=== PATIENT | female | born 1940 | race Caucasian/White ===

== ENCOUNTER 2021-01-24 08:01 | Observation (INO) | payer OTHER ==
[~2021-01-24] VITALS: Ht 170.2 cm; Wt 87.1 kg
[~2021-01-24 08:01] MED LIST: ADULT LOW DOSE81 MG; ASPIRIN EC325 M1 PO; ASPIRIN81 M2 PO; CHOLESTYRAMINE; CIPROFLOXACIN500 M1 PO; ESTRADIOL; GLUCOSAMINE1000 MG PO; PREMARIN0.3 MG; PROPRANOLOL PO; PYRIDIUM200 MG PO; QUESTRAN; QUETIAPINE; RANITIDINE PO; SEROQUEL 25 MG25 M1; TYLENOL; [UNRECOGNIZED DRUG - REMARK]
[2021-01-24 08:03] VITALS: BP 149/55
[2021-01-24] MEDS ORDERED: TYLENOL325 MG PO (08:13)
[2021-01-24] MEDS ORDERED: ELIQUIS5 MG PO (08:13)
[2021-01-24] MEDS ORDERED: FLONASE 0.05%50 MCG NARES (08:14)
[2021-01-24] MEDS ORDERED: CHOLESTYRAMINE L4 GM PO (08:14)
[2021-01-24] MEDS ORDERED: SKELAXIN 800 M800 MG PO (08:15)
[2021-01-24] MEDS ORDERED: MYSOLINE50 MG PO (08:15)
[2021-01-24] MEDS ORDERED: INDERAL60 MG PO (08:16)
[2021-01-24] MEDS ORDERED: TRAMADOL 50 MG50 MG PO (08:17)
[2021-01-24] MEDS ORDERED: DERMACINRX FOL (08:17)
[2021-01-24 08:31] LABS: ABSOLUTE BASOPHILS 0.1 thou/uL (0.0-0.2); ABSOLUTE EOSINOPHILS 0.1 thou/uL (0.0-0.7); ABSOLUTE LYMPHOCYTES 1.5 thou/uL (0.8-5.3); ABSOLUTE MONOCYTES 0.7 thou/uL (0.0-1.2); ABSOLUTE NEUTROPHILS 4.3 thou/uL (1.6-8.1); BASOPHILS 1.2 %; EOSINOPHILS 2.1 %; HEMATOCRIT 32.6 % (37.0-47.0); HEMOGLOBIN 11.5 gm/dL (12.0-15.0); LYMPHOCYTES 22.3 %; MCH 30.6 pg (26.0-34.0); MCHC 35.3 g/dL (28.0-37.0); MCV 86.7 fL (80.0-100.0); MONOCYTES 10.7 %; MPV 7.1 fl. (7.2-11.1); NUCLEATED RBCS 0 /100WBC; PLATELET COUNT* 409 thou/uL (150-400); POLYS 63.7 %; RBC 3.76 mil/uL (4.20-5.00); RDW-CV 14.3 % (10.5-14.5); WBC 6.8 thou/uL (4.0-11.0)
[2021-01-24 08:38] LABS: ANION GAP 7 mmol/L (7-16); BUN 12 mg/dL (7-18); CALCIUM 9.8 mg/dL (8.5-10.1); CHLORIDE 101 mmol/L (98-107); CO2 27 mmol/L (21-32); CREATININE 0.7 mg/dL (0.6-1.3); GLUCOSE 140 mg/dL (70-99); POTASSIUM 4.1 mmol/L (3.5-5.1); SODIUM 135 mmol/L (136-145)
[2021-01-24 08:47] LABS: ALBUMIN 3.5 g/dL (3.4-5.0); ALKALINE PHOSPHATASE 141 U/L (46-116); NT-PRO BRAIN NAT PEPTIDE 95 pg/mL (<300); SGOT 21 U/L (15-37); SGPT 25 U/L (30-65); TOTAL BILIRUBIN 0.6 mg/dL (<0.1-1.0); TOTAL PROTEIN 7.1 g/dL (6.4-8.2)
[2021-01-24 09:39] LABS: URINE BILIRUBIN NEGATIVE (Negative); URINE BLOOD NEGATIVE (Negative); URINE CLARITY CLEAR; URINE COLOR YELLOW; URINE GLUCOSE-RANDOM NEGATIVE (Negative); URINE KETONES NEGATIVE (Negative); URINE LEUKOCYTES-REFLEX NEGATIVE (Negative); URINE NITRITE-REFLEX NEGATIVE (Negative); URINE PROTEIN NEGATIVE (Negative); URINE SPECIFIC GRAVITY >= 1.030 (1.005-1.030); URINE UROBILINOGEN 0.2 E.U./dl (0.2-1.0)
[2021-01-24 13:00] VITALS: BP 128/45
[2021-01-24 16:00] VITALS: BP 132/43
--- NOTE | 2021-01-24 16:30 | EKG ---
[place] [address] ELECTROCARDIOGRAM REPORT Name: JUVENCIO INTERIANO Room: [address] M.R.#: [id number] Admission: 01/24/21 Attend Phys: Shaquille King Discharge: Date of : 40 Date of Service: 01/24/21 0827 Report #: [id number] THIS REPORT FOR: //name// [facility] ED Test Date: 2021-01-24 Test Time: 08:27:23 Pat Name: JUVENCIO INTERIANO Department: Room: [facility] Gender: F Lacing Presser: THUY : 1940 Requested By: Bipin Barlow Order Number: [id number] MD: Clemente Monroe Measurements Intervals [place] Rate: 59 P: -82 SC: 217 QRS: -36 QRSD: 108 T: 22 QT: 409 QTc: 406 Interpretive Statements Sinus rhythm Borderline prolonged SC interval Left axis deviation Possible inferior scar Compared to ECG 03/22/2011 14:38:16 Left-axis deviation now present Left anterior fascicular block persists Myocardial infarct finding still suggested Electronically Signed On 01-24-2021 16:30:39 CDT by Clemente Monroe [email or web address] <ELECTRONICALLY SIGNED> By: Clemente Monroe MD, [facility] 01/24/21 1630 6 6 Clemente Monroe MD, [facility] /EPI
--- NOTE | 2021-01-24 17:39 | NUR ---
PATIENT ARRIVED TO UNIT FROM ER AT APPROX. 1413. PATIENT STATES THAT SHE HAD RIGHT KNEE SURGERY ON JANUARY [address] GARCIA AT [facility]. THEN WENT TO [facility] [place], [facility] BY [facility] FOR APPROX. 2 WEEKS THEN CAME HOME THIS PAST FRIDAY. STATES SHE SAW DR. GARCIA YESTERDAY AND IS HAVING PAIN IN HER RIGHT KNEE HOWEVER DOES NOT WANT ANYTHING FOR PAIN AT THIS TIME. DR. GIPSON SAW PATIENT AT BEDSIDE DURING THIS NURSE'S ASSESSMENT. PER VERBAL ORDER, ADDED HEART HEALTHY DIET FOR PATIENT. THIS NURSE PROVIDED PATIENT WITH SANDWICH BOX. PATIENT CALLED OUT AFTER TAKING "A FEW BITES OF THE SANDWICH" AND STATES THAT SHE IS "ALLERGIC TO [place]". SOON AFTER, PATIENT'S SISTER, URIEL, NOTIFIED THIS NURSE THAT PATIENT SPOKE NASTY TO HER AND "KICKED HER OUT" OF HER ROOM. URIEL ALSO STATES THAT PATIENT HAD TOLD HER THAT "NONE OF THESE NURSES ARE HELPING HER DO ANYTHING" (WHICH SHE HAD NOT CALLED OUT FOR HELP AT THAT POINT) AND THAT THE "NURSE KNEW I WAS ALLERGIC TO [place] AND SHE GAVE IT TO ME ON PURPOSE". THIS NURSE ASSURED SISTER THAT PATIENT HAD NOT MENTIONED HER "ALLERGY TO [place]" NOR WAS IT LISTED ON HER ALLERGIES OTHERWISE THIS NURSE WOULD CERTAINLY NOT HAVE GIVEN IT TO HER. URIEL THEN PROCEEDS TO TELL THIS NURSE THAT PATIENT "DOES THIS STUFF ALL THE TIME". SISTER ALSO STATES THAT PATIENT HAS "HAD APPROX. 4 STAYS IN A MENTAL HOSPITAL." THIS NURSE HAS SINCE ASSISTED PATIENT TO [facility] AND APOLOGIZED TO PATIENT ABOUT PROVIDING HER WITH A [place] SANDWICH, ALSO THAT THIS NURSE WOULD ADD [place] TO HER LIST OF ALLERGIES. PATIENT EXPRESSED HER APPRECIATION TO THIS NURSE, STATING, "YOU HAVE BEEN SO NICE TO ME, THANK YOU". CALL LIGHT AND FREQUENTLY USED ITEMS WITHIN REACH.
[2021-01-24 20:00] VITALS: BP 134/43
[2021-01-24 23:50] VITALS: BP 150/55
--- NOTE | 2021-01-25 03:15 | NUR ---
PT ALERT ORINTED. INITAL ASSESSMENT PT STATED SHE NEEDED CHOLESTYRAMINE. LOOKING ON EMAR IT SHOWED PT REFUSED IT AT 1459. PT ADAMANTLY DENIED REFUSING. WHEN OFFERED TO GIVE IT SHE REFUSED. 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 UP WITH STAND BY ASSIST TO THE BSC. TRAMADOL AND MELATONIN GIVEN HS.
[2021-01-25 03:59] LABS: HEMOGLOBIN 11.1 gm/dL (12.0-15.0); MCH 30.3 pg (26.0-34.0); MCHC 34.6 g/dL (28.0-37.0); MCV 87.5 fL (80.0-100.0); MPV 7.5 fl. (7.2-11.1); RBC 3.66 mil/uL (4.20-5.00); RDW-CV 13.9 % (10.5-14.5)
[2021-01-25 04:00] VITALS: BP 145/67
[2021-01-25 04:01] LABS: CALCIUM 9.8 mg/dL (8.5-10.1); CREATININE 0.7 mg/dL (0.6-1.3); POTASSIUM 3.9 mmol/L (3.5-5.1)
[2021-01-25 08:00] VITALS: BP 141/67
[2021-01-25 10:23] VITALS: BP 145/67
--- NOTE | 2021-01-25 10:27 | NUR ---
CM ASSESSMENT: PT A&O, BUT FORGETFUL. CM SPOKE TO THE PT AND HER SISTER TO DISCUSS CM ASSESSMENT. PT RESIDES AT HOME ALONE. PT STILL ABLE TO DRIVE. PT USES A WALKER FOR MOBILITY, BUT ALSO OWNS A CANE. PT RECENTLY D/C'D (01/22/21) FROM SNF AT [facility] AFTER KNEE SX. PT CURRENT WITH [facility] , AND PLANS TO RESUME HH WITH [facility] AT D/C. CM TO FAX PT'S D/C HH ORDERS WHEN AVAILABLE. PT'S SISTER INFORMS OF ABILITY TO PRIOVIDE PT TRANSPORTATION HOME AT D/C, AND RN HAS BEEN INFORMED OF THIS. CM WILL REMAIN AVAILABLE TO ASSIST AND FOLLOW NEEDED. [facility] PHONE: [phone] FAX: [phone]
--- NOTE | 2021-01-25 10:53 | NUR ---
THIS ASSOCIATE PROFESSOR OF THEOLOGY IS IN AGREEMENT WITH DOCUMENTED EVALUATION BY SHAISTA DIETZ FOR THIS DAY. DANIEL PRATTT
--- NOTE | 2021-01-25 11:09 | NUR ---
Nutrition: Pt admitted with weakness, knee pain. Seen for nsg risk 2 points. Pt had knee surgery and went to [facility] afterwards. She stated she lost wt then d/t her taste changes and couldn't tolerate the food there. Lost 30# in a couple of months. Current wt: 185#. She feels less able to cook/care for self at home d/t weakness and fatigue, but she is managing ok. She plans to get a meal delivery service when she gets home so she can eat healtfully without as much cooking effort. She seems motivated and upneat. Heart healthy diet and eating well. Alb 3.5, BG 123. H/o skin ca, OA. Assessed at mild risk.
[2021-01-25 12:00] VITALS: BP 142/55
[2021-01-25 12:02] VITALS: BP 145/67
--- NOTE | 2021-01-25 17:36 | NUR ---
VS CHARTED, SR ON TELE, ROOM AIR, UP WITH ONE AND WALKER, HOURLY ROUNDING PERFORMED, POSSESSIONS AND CALL LIGHT WITHIN REACH, REC DISCHARGE ORDERS, REVIEWED WITH PATIENT, NO NEW MEDS, PATIENT TAKEN BY NURSING STAFF IN WHEELCHAIR TO EXIT AND PICKED UP BY SISTER IN FAMILY CAR
== END 2021-01-25 13:50 | disposition home health service (06) ==
LOC: M.ERS 08:01 → M.TBA-ER 11:55 → M.2W 14:43
PROVIDERS: Emergency Medicine Emergency Medical Services; Family Medicine; ADMIT Internal Medicine; ATTEND Internal Medicine
DX: R53.1 Weakness (principal); Z20.822 Contact with and (suspected) exposure to COVID-19; R79.1 Abnormal coagulation profile; E87.1 Hypo-osmolality and hyponatremia; Z96.651 Presence of right artificial knee joint; Z90.49 Acquired absence of other specified parts of digestive tract; Z79.899 Other long term (current) drug therapy